=== PATIENT | female | born 1970 | race Caucasian/White ===

== ENCOUNTER → 2018-08-04 | Day surgery (SDC) | payer OTHER ==
[~2018-08-04] MED LIST: AMIT50TA PO; ATOR40TA PO; HYDR25TA PO; IV RINGERS,LACTATED 1000ML 1,000 ML IV SCH; LEXAPRO20 MG PO; LIDOCAINE 1% PF 2 ML VIAL. ONE; OMEP20TA63 PO; PROPOFOL 60 ML IV ONE; TIZA4TAB PO
[2018-08-04 10:31] VITALS: BP 112/56
--- NOTE | 2018-08-06 14:09 | PATHOLOGY ---
[facility] Accession Number: [id number] . 01 Material submitted: . PART A: DISTAL ESOPHAGUS BIOPSIES PART B: APPENDICEAL MASS . 01 Clinical history: . GERD, colon screening . 02 Diagnosis: A. Esophageal biopsies, distal esophagus: - Segments of hyperplastic squamous esophageal mucosa and segment of gastric mucosa showing superficial chronic inflammation, consistent with reflux esophagitis. . B. Colon biopsies, appendiceal mass: - Tubular adenoma with at least high-grade dysplasia. See comment. . (JPM:jeni; 08/06/2018) QMS/08/06/2018 . 02 Comment: Sections of the distal esophageal biopsy reveal segments of hyperplastic squamous esophageal mucosa and a segment of gastric mucosa showing superficial mild chronic inflammation. Focally, there are a few eosinophils within the hyperplastic squamous epithelium. The findings are consistent with reflux. There is no evidence of Muller's change, dysplasia, or malignancy. . Sections of the appendiceal mass reveal a tubular adenoma with high-grade dysplasia. The accompanying stroma focally appears reactive and inflamed. We are concerned about the possibility of invasive carcinoma, although a definitive diagnosis cannot be rendered in this biopsy. . The case is also examined by Dr. Tapia, who concurs with the diagnosis. (JPM:jeni; 08/06/2018) . 02 Electronically signed: . Meir Ye MD, Pathologist NPI- [id number] . 01 Gross description: . A. Received in formalin labeled "Belkis Bowles, distal esophageal biopsies," are 3 segments of crocker soft tissue measuring 0.9 x 0.6 x 0.3 cm in aggregate dimensions and ranging from 0.3 to 0.5 cm in maximum dimension. The specimen is submitted entirely in cassette A1. . B. Received in formalin labeled "Belkis Bowles, appendiceal mass," are multiple segments of crocker soft tissue measuring 1.7 x 0.5 x 0.3 cm in aggregate dimensions. The specimen is filtered and entirely submitted in cassette B1. (TSD; 08/04/2018) TOB/TOB . 02 Pathologist provided ICD-10: D12.1, K21.0 . 02 CPT . 974096, 103427 Specimen Comment: A courtesy copy of this report has been sent to Specimen Comment: [phone], . Specimen Comment: Report sent to / DR DARNELL Specimen Comment: A duplicate report has been generated due to demographic updates. Performed at: 01 [facility] [address] [facility] [facility] [address], [place] [id number] MD Дмитрий Parker MD Phone: [phone] Performed at: 02 [facility] [address] [place], [place] [id number] MD Meir Ye MD Phone: [phone]
== END | disposition home or self-care (01) ==
LOC: SURG 08:36
PROVIDERS: ATTEND Internal Medicine Gastroenterology
DX: Z12.11 Encounter for screening for malignant neoplasm of colon (principal); D12.1 Benign neoplasm of appendix; K29.50 Unspecified chronic gastritis without bleeding; K21.0 Gastro-esophageal reflux disease with esophagitis; K64.0 First degree hemorrhoids; K57.30 Diverticulosis of large intestine without perforation or abscess without bleeding; Z86.010 Personal history of colon polyps; F41.9 Anxiety disorder, unspecified; E78.00 Pure hypercholesterolemia, unspecified; Z80.3 Family history of malignant neoplasm of breast; Z79.899 Other long term (current) drug therapy; Z98.890 Other specified postprocedural states; Z90.710 Acquired absence of both cervix and uterus; Z98.51 Tubal ligation status
CPT/HCPCS: 43239; 45380; J2704; 88305

== ENCOUNTER → 2018-08-04 | Outpatient (CLI) | payer OTHER ==
[~2018-08-04] MED LIST changes: +IOHEXOL 240 MG/ML 50ML VIAL. PO ONE; +IOHEXOL 300 MG/ML 100ML VIAL. IV ONE; -IV RINGERS,LACTATED 1000ML 1,000 ML IV SCH; -LIDOCAINE 1% PF 2 ML VIAL. ONE; -PROPOFOL 60 ML IV ONE
[2018-08-04 10:31] VITALS: BP 112/56
--- NOTE | 2018-08-04 13:34 | RAD ---
EXAM: CT Abdomen and Pelvis with IV contrast CLINICAL HISTORY: MASS ON APPENDIX. COMPARISON: none TECHNIQUE: Helical CT of the abdomen and pelvis was performed following the administration of intravenous contrast. Oral contrast was administered. Axial, coronal and sagittal reformatted images were generated. PQRS compliance statement - One or more of the following individualized dose reduction techniques were utilized for this study: 1. Automated exposure control 2. Adjustment of the mA and/or kV according to patient size 3. Use of iterative reconstruction technique FINDINGS: Lower chest: Lung bases are clear. Abdomen and Pelvis: Liver is not enlarged. A round 5 mm peripheral right hepatic lobe enhancing focus is seen. In addition anteriorly within the medial right hepatic lobe is a 1 cm hyperenhancing focus peripherally. Gallbladder is normal. No biliary ductal dilatation. Subcentimeter hypoattenuating splenic lesion is too small to characterize. Adrenal glands and pancreas are unremarkable. Symmetric nephrograms. No focal renal lesion. No hydronephrosis or hydroureter. No small or large bowel dilatation. No evidence for bowel obstruction. The appendix is seen however no discrete associated mass is not delineated. A right lower quadrant/pericecal lymph node measures 1.4 x 0.9 cm. No abdominal or pelvic ascites. No pneumoperitoneum. Hysterectomy changes are seen. Small fat-containing periumbilical hernia. Bones: Grossly unremarkable IMPRESSION: 1. A discrete appendiceal mass is not identified and the appendix looks normal. However a prominent to borderline enlarged pericecal lymph node is seen measuring 0.9 cm in short axis. 2. 2 hyperenhancing lesions within the liver, although they may be from vascular shunting, hypervascular metastasis or flash filling hemangioma may have appearance. Electronically signed by: Red Richard MD (08/04/2018 1:30 PM) [facility]
== END | disposition home or self-care (01) ==
LOC: CT 10:51
PROVIDERS: ATTEND Internal Medicine Gastroenterology
DX: K76.89 Other specified diseases of liver (principal); K42.9 Umbilical hernia without obstruction or gangrene
CPT/HCPCS: 74177; Q9967